=== PATIENT | female | born 2000 | race African-American/Black ===

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

== ENCOUNTER 2022-10-09 13:23 | Emergency (ER) | payer OTHER ==
[2022-10-09] MEDS ORDERED: cefTRIAXone (ROCEPHIN) 500 MG VIAL ONE (14:15)
[2022-10-09] MEDS ORDERED: Lidocaine 1% MPF 2 ML VIAL ONE (14:15)
[2022-10-09 14:31] LABS: Pregnancy Test - Urine (BHCG) Negative (Negative); Pregu Control Background? CLEAR/WHITE (CLR/WHITE); Pregu Control Bar Appear? YES (CONTROL BAR); Specific Gravity 1.024 (1.002-1.036)
[2022-10-09 19:41] LABS: Chlam.trachomatis by PCR,Urine Not Detected (NotDetected); GC N.gonorrhoeae PCR,UrineVOID Not Detected (NotDetected)
== END 2022-10-09 15:09 | disposition home or self-care (01) ==
LOC: ERS 13:23
DX: Z11.3 Encounter for screening for infections with a predominantly sexual mode of transmission (principal)
CPT/HCPCS: 81025; 87491; 87591; 96372; 99283; J0696

== ENCOUNTER 2023-02-13 15:09 | Emergency (ER) | payer OTHER ==
[2023-02-13 16:30] LABS: Bilirubin Unable to Interpret (Negative); Clarity Hazy (Clear); Glucose, Urine (Dipstick) Unable to Interpret mg/dL (Negative); Ketone, Urine Unable to Interpret mg/dL (Negative); Leukocyte Unable to Interpret Leu/uL (Negative); Nitrite Unable to Interpret (Negative); Protein, Urine (Dipstick) Unable to Interpret mg/dL (Neg-Trace); Specific Gravity, Urine 1.031 (1.002-1.036); Urobilinogen UNABLE TO INTERPRET mg/dL (Less than 2); pH, Urine 5.9 (5.0-9.0)
[2023-02-13 16:31] LABS: Blood, Urine Unable to Interpret (Negative)
[2023-02-13 16:33] LABS: Bacteria/HPF 1+ HPF (None Seen); CAUTI Indications for Culture Pelvic or flank pain; RBC/HPF Greater than 50 HPF (0-3)
[2023-02-13 16:34] LABS: Urine Culture Reflex No No
[2023-02-13 16:36] LABS: #Monocytes 0.7 thou/uL (0.11-0.59); %Basophils 0.4 % (0.0-1.0); %Eosinophils 0.5 % (0.0-10.0); %Lymphocytes 25.6 % (21.0-51.0); %Monocytes 9.3 % (0.0-10.0); %Neutrophils 64.1 % (42.0-75.0); Hematocrit 35.5 % (36.0-47.0); Hemoglobin 11.8 g/dL (12.0-16.0); Mean Corpuscular HGB CONC 33.2 g/dL (32.0-36.0); Mean Corpuscular Hemoglobin 29.4 pg (27.0-31.0); Mean Corpuscular Volume 88.5 fl (78.0-98.0); Platelet Count 245 10x3/uL (130-400); RBC Distribution Width 14.5 % (11.5-14.5); Red Blood Cell (RBC) Count 4.01 mill/uL (4.20-5.40); White Blood Cell (WBC) Count 7.8 10x3/uL (4.8-10.8)
[2023-02-13 16:48] LABS: BHCG - Serum Negative (NEGATIVE); Pregs Control Background? CLEAR/WHITE (CLR/WHITE); Pregs Control Bar Appear? YES (CONTROL BAR)
[2023-02-13 16:58] LABS: ALT (SGPT) 8 U/L (8-55); AST (SGOT) 18 U/L (5-34); Albumin 4.2 g/dL (3.5-5.0); Alkaline Phosphatase 46 U/L (40-110); Anion Gap 13 mmol/L (10-20); BUN (Urea Nitrogen) 8 mg/dL (7.0-18.7); Calc. Creatinine Clearance 0 mL/min (70-130); Calcium 9.3 mg/dL (7.8-10.44); Carbon Dioxide 21 mmol/L (22-29); Chloride 109 mmol/L (98-107); Estimated GFR 97; Globulin 3.4 g/dL (2.4-3.5); Glucose 80 mg/dL (70-105); Potassium 3.9 mmol/L (3.5-5.1); Protein, Total 7.6 g/dL (6.0-8.3); Sodium 139 mmol/L (136-145)
[2023-02-13 22:12] LABS: Chlam.trachomatis by PCR,Urine DETECTED (NotDetected); GC N.gonorrhoeae PCR,UrineVOID Not Detected (NotDetected)
== END 2023-02-13 18:42 | disposition home or self-care (01) ==
LOC: ERS 15:09
DX: N93.9 Abnormal uterine and vaginal bleeding, unspecified (principal); R82.71 Bacteriuria
CPT/HCPCS: 36415; 80053; 81001; 84703; 85025; 86850; 86900; 86901; 87491; 87591; 99284

== ENCOUNTER 2023-03-17 11:06 | Emergency (ER) | payer OTHER ==
[2023-03-17 11:47] LABS: #Eosinphils 0.1 thou/uL (0.0-0.7); #Monocytes 0.4 thou/uL (0.11-0.59); #Neutrophils 3.1 thou/uL (1.40-6.50); %Basophils 0.5 % (0.0-1.0); %Eosinophils 2.3 % (0.0-10.0); %Lymphocytes 34.3 % (21.0-51.0); %Monocytes 7.7 % (0.0-10.0); Hematocrit 37.1 % (36.0-47.0); Hemoglobin 12.4 g/dL (12.0-16.0); Mean Corpuscular HGB CONC 33.4 g/dL (32.0-36.0); Mean Corpuscular Hemoglobin 29.7 pg (27.0-31.0); Mean Corpuscular Volume 88.8 fl (78.0-98.0); Platelet Count 266 10x3/uL (130-400); RBC Distribution Width 14.1 % (11.5-14.5); Red Blood Cell (RBC) Count 4.18 mill/uL (4.20-5.40); White Blood Cell (WBC) Count 5.6 10x3/uL (4.8-10.8)
[2023-03-17 12:10] LABS: ALT (SGPT) 8 U/L (8-55); AST (SGOT) 14 U/L (5-34); Albumin 4.1 g/dL (3.5-5.0); Alkaline Phosphatase 43 U/L (40-110); Anion Gap 12 mmol/L (10-20); BUN (Urea Nitrogen) 8 mg/dL (7.0-18.7); Bilirubin, Total 0.5 mg/dL (0.2-1.2); Calc. Creatinine Clearance 0 mL/min (70-130); Calcium 9.5 mg/dL (7.8-10.44); Carbon Dioxide 25 mmol/L (22-29); Chloride 106 mmol/L (98-107); Estimated GFR 90; Globulin 3.5 g/dL (2.4-3.5); Glucose 84 mg/dL (70-105); Lipase 17 U/L (8-78); Potassium 4.2 mmol/L (3.5-5.1); Protein, Total 7.6 g/dL (6.0-8.3); Sodium 139 mmol/L (136-145)
[2023-03-17 12:14] LABS: Troponin I Less than 0.010 ng/mL (< 0.028)
[2023-03-17 12:19] LABS: BHCG - Serum Negative (NEGATIVE); Pregs Control Background? CLEAR/WHITE (CLR/WHITE); Pregs Control Bar Appear? YES (CONTROL BAR)
[2023-03-17 12:24] LABS: SARS-CoV-2 NAA Rapid Test DETECTED (NotDetected)
== END 2023-03-17 12:34 | disposition home or self-care (01) ==
LOC: ERS 11:06
DX: R04.2 Hemoptysis (principal)
CPT/HCPCS: 36415; 71045; 80053; 83690; 84484; 84703; 85025; 85379; 93005

== ENCOUNTER 2023-06-14 18:18 | Emergency (ER) | payer OTHER, SELFPAY ==
[2023-06-14] MEDS ORDERED: Ketorolac Tromethamine 30 MG (1 mL) VIAL ONE (18:40)
[2023-06-14] MEDS ORDERED: Albuterol 2.5 MG (3 mL) NEB ONE (18:40)
[2023-06-14] MEDS ORDERED: Ipratropium/Albuterol 3 ML NEB ONE (18:40)
[2023-06-14] MEDS ORDERED: Albuterol 1.25 MG (3 mL) NEB ONE (18:40)
[2023-06-14 19:11] LABS: Hematocrit 34.2 % (36.0-47.0); Hemoglobin 11.6 g/dL (12.0-16.0); Manual Diff?? YES; Mean Corpuscular HGB CONC 33.9 g/dL (32.0-36.0); Mean Corpuscular Hemoglobin 29.1 pg (27.0-31.0); Mean Corpuscular Volume 85.9 fl (78.0-98.0); Mean Platelet Volume 11.8 fL (7.4-10.4); Platelet Count 167 10x3/uL (130-400); RBC Distribution Width 14.2 % (11.5-14.5); Red Blood Cell (RBC) Count 3.98 mill/uL (4.20-5.40); White Blood Cell (WBC) Count 3.3 10x3/uL (4.8-10.8)
[2023-06-14 19:12] LABS: BHCG - Serum Negative (NEGATIVE); Pregs Control Background? CLEAR/WHITE (CLR/WHITE); Pregs Control Bar Appear? YES (CONTROL BAR)
[2023-06-14 19:13] LABS: Delete Auto Diff?? YES
[2023-06-14 19:34] LABS: Anisocytosis MODERATE=16-30 cells HPF (0-5); Band 6 % (5-11); Burr Cells SLIGHT = 2-5 cells HPF (0-1); CellaVision Operator ID LAB.KB; Elliptocytes SLIGHT = 2-5 cells HPF (0-1); Lymphocytes 17 % (21-51); Macrocytosis SLIGHT = 6-15 cells HPF (0-5); Monocytes 4 % (0-10); Neutrophil 56 % (42-75); Platelet Adequacy Comment Platelets Normal; Poikilocytosis SLIGHT = 6-15 cells HPF (0-5); Reactive Lymphocytes 17 % (0-10); Total Cell Count 100
[2023-06-14 19:36] LABS: ALT (SGPT) 13 U/L (8-55); AST (SGOT) 36 U/L (5-34); Albumin 4.2 g/dL (3.5-5.0); Alkaline Phosphatase 37 U/L (40-110); Anion Gap 16 mmol/L (10-20); BUN (Urea Nitrogen) 10 mg/dL (7.0-18.7); Bilirubin, Total 0.4 mg/dL (0.2-1.2); Calc. Creatinine Clearance 0 mL/min (70-130); Calcium 8.8 mg/dL (7.8-10.44); Carbon Dioxide 21 mmol/L (22-29); Chloride 106 mmol/L (98-107); Estimated GFR 106; Globulin 4.7 g/dL (2.4-3.5); Glucose 106 mg/dL (70-105); Potassium 5.9 mmol/L (3.5-5.1); Protein, Total 8.9 g/dL (6.0-8.3); Sodium 137 mmol/L (136-145)
== END 2023-06-14 19:45 | disposition home or self-care (01) ==
LOC: ERS 18:18
DX: R07.89 Other chest pain (principal); J45.901 Unspecified asthma with (acute) exacerbation; V89.2XXA Person injured in unspecified motor-vehicle accident, traffic, initial encounter; Y92.410 Unspecified street and highway as the place of occurrence of the external cause; Z79.899 Other long term (current) drug therapy
CPT/HCPCS: 71045; 80053; 84703; 85025; 93005; 96374; J1885; J7611; J7620

== ENCOUNTER 2025-01-08 16:26 | Emergency (ER) | payer BC ==
[2025-01-08] MEDS ORDERED: Fluorescein Opthalmic Strip ONE (16:36)
[2025-01-08] MEDS ORDERED: Proparacaine 0.5% Opth 15 ML BOT ONE (16:36)
[2025-01-08] MEDS ORDERED: Ibuprofen 200 MG TAB ONE (18:03)
== END 2025-01-08 18:09 | disposition home or self-care (01) ==
LOC: ERS 16:26
DX: S00.11XA Contusion of right eyelid and periocular area, initial encounter (principal); S80.01XA Contusion of right knee, initial encounter; W01.0XXA Fall on same level from slipping, tripping and stumbling without subsequent striking against object, initial encounter; Y93.02 Activity, running
CPT/HCPCS: 99283